=== PATIENT | male | born 1995 | race American Indian/Alaskan Native ===

== ENCOUNTER 2017-10-14 16:15 | Emergency (ER) | payer SELFPAY ==
[2017-10-14] MEDS ORDERED: DELTASONE PO ONE (20:00)
[2017-10-14] MEDS ORDERED: MOTRIN PO ONE (20:00)
--- NOTE | 2017-10-14 20:44 | Emergency Department Report ---
HPI - General Chief Complaint: Upper Respiratory Infection Time Seen by Provider: 10/14/17 19:31 - HPI HPI: Patient is a 22-year-old male who presents to ED with his mother complaining of throat pain 3 days. Patient describes pain as throbbing in nature, 8 out of 10 intensity, nonradiating, localized to his throat. Admits pain with swallowing and eating. Patient also complains of generalized body aches. Patient denies fever/cough/runny nose /nausea/vomiting/abdominal pain/shortness of breath/chest pain/headache. ED Past Medical Hx - Past Medical History Previous Medical History?: No - Surgical History Past Surgical History?: No - Social History Smoking Status: Never Smoker Substance Use Type: Marijuana - Medications Home Medications: Home Medications Medication Instructions Recorded Confirmed Last Taken Type Ibuprofen [Motrin 800 MG tab] 800 mg PO TID #30 tablet 10/14/17 Unknown Rx Nystas/Diphen/Xyl Visc/Mylanta 30 ml MM Q6H PRN #120 ml 10/14/17 Unknown Rx [Magic Mouthwash] guaiFENesin ER [Mucinex ER] 600 mg PO Q12H #20 tablet.er 10/14/17 Unknown Rx ED Review of Systems ROS: Stated complaint: SINUS INFECTION. Other details as noted in HPI Constitutional: denies: chills, fever Eyes: denies: eye pain, eye discharge, vision change ENT: throat pain. denies: ear pain, dental pain, hearing loss, congestion Respiratory: denies: cough, shortness of breath, wheezing Cardiovascular: denies: chest pain, palpitations Endocrine: no symptoms reported Gastrointestinal: denies: abdominal pain, nausea, diarrhea Genitourinary: denies: urgency, dysuria Musculoskeletal: denies: back pain, joint swelling, arthralgia Skin: denies: rash, lesions Neurological: denies: headache, weakness, paresthesias Psychiatric: denies: anxiety, depression Hematological/Lymphatic: denies: easy bleeding, easy bruising Physical Exam - Physical Exam Vital Signs: Vital Signs 10/14/17 16:19 Temperature 97.9 F Pulse Rate 86 Respiratory 16 Rate Blood Pressure 128/80 O2 Sat by Pulse 96 Oximetry Physical Exam: GENERAL: Alert and oriented x3, no apparent distress, Normal Gait, atraumatic. HEAD: Head is normocephalic and a-traumatic. EYES: Extra ocular muscles are intact. Pupils are equal, round, and reactive to light and accommodation. EARS: symetrical, atraumatic, non tender, ear canal clear and moderate cerumen, tympanic membrance non inflamed. gross auditory nml bilaterally. NOSE: Nose symetrical, Nontender,Nares appeared normal. MOUTH:Mouth is well hydrated and without lesions. Tonsils mildly erythematous but not swollen, Uvula midline, Tongue not elevated. Mucous membranes are moist. Posterior pharynx clear, no exudate or lesions. Patent airways. NECK: Supple. Non edematous, No lymphadenopathy or thyromegaly. No C-spine tenderness LUNGS: Symetrical with respiration, No wheezing, no rales or crackles, CTAB. HEART: S1, S2 present, regular rate and rhythm without murmur, no rubs, no gallops. Non tender to palpation SKIN: Warm and dry, No lesions, No ulceration or induration present. ED Course Vital Signs 10/14/17 16:19 Temperature 97.9 F Pulse Rate 86 Respiratory 16 Rate Blood Pressure 128/80 O2 Sat by Pulse 96 Oximetry ED Medical Decision Making - Medical Decision Making 22-year-old male presents with pharyngitis. ED course: Rapid strep tests ordered rapid strep test negative Patient received 1 dose of Tylenol, 60 mg of prednisone. No fever during ED stay. Vital signs stable patient is in no acute or respiratory distress. Discussed with patient follow-up with primary care physician. Patient verbally states he understands and will comply to follow-up. Critical care attestation.: If time is entered above; I have spent that time in minutes in the direct care of this critically ill patient, excluding procedure time. ED Disposition Clinical Impression: Pharyngitis Qualifiers: Pharyngitis/tonsillitis etiology: unspecified etiology Qualified Code(s): J02.9 - Acute pharyngitis, unspecified Disposition: - TO HOME OR SELFCARE Is pt being admited?: No Does the pt Need Aspirin: No Condition: Stable Instructions: Pharyngitis (ED), Upper Respiratory Infection (ED), Viral Syndrome (ED) Additional Instructions: Make sure to follow up with the primary care physician as discussed. Take all your medications as you've been prescribed. If you have any worsening symptoms or develop new symptoms please return to ED immediately. Prescriptions: guaiFENesin ER [Mucinex ER] 600 mg PO Q12H #20 tablet.er Ibuprofen [Motrin 800 MG tab] 800 mg PO TID #30 tablet Nystas/Diphen/Xyl Visc/Mylanta [Magic Mouthwash] 30 ml MM Q6H PRN #120 ml PRN Reason: Sore Throat Referrals: ROLAN RYAN MD [Primary Care Provider] - 3-5 Days RICH RASHID MD [Referring] - 3-5 Days [facility] [Outside] - 3-5 Days [facility] [Outside] - 3-5 Days Forms: Accompanied Note, Work/School Release Form(ED) Time of Disposition: 20:57
[2017-10-14 22:34] VITALS: BP 130/79
== END 2017-10-14 21:30 | disposition home or self-care (01) ==
LOC: ED 16:15
DX: J02.9 Acute pharyngitis, unspecified (principal)
CPT/HCPCS: 87116; 87430; 99282; J7512

== ENCOUNTER 2019-02-01 19:05 | Emergency (ER) | payer SELFPAY ==
[2019-02-01] MEDS ORDERED: BOOSTRIX IM ONE (19:36)
--- NOTE | 2019-02-01 19:36 | Emergency Department Report ---
ED Laceration HPI - HPI Stated Complaint: CODE TRAUMA Time Seen by Provider: 02/01/19 19:10 Occurred When: Today Severity: severe Tetanus Status: Not up to Date Laceration Symptoms: Yes Pain, No Foreign Body Sensation, No Numbness, No Weakness Other History: Patient is a 23-year-old male that just emergency room with complaints of laceration to his right forearm after punching a glass window. Patient complains of pain. Patient states she's lost a lot of blood. Patient states after he saw the blood on the floor he became nauseous and lightheaded. Patient states is nausea and lightheadedness and vomiting have resolved. Patient states the pain is present. Based states the pain is better with rest and worse with movement of the extremity. ED Review of Systems ROS: Stated complaint: CODE TRAUMA Other details as noted in HPI Constitutional: denies: chills, fever Eyes: denies: eye pain, eye discharge, vision change ENT: denies: ear pain, throat pain Respiratory: denies: cough, shortness of breath, wheezing Cardiovascular: denies: chest pain, palpitations Endocrine: no symptoms reported Gastrointestinal: nausea, vomiting. denies: abdominal pain, diarrhea Genitourinary: denies: urgency, dysuria Musculoskeletal: denies: back pain, joint swelling, arthralgia Skin: denies: rash, lesions Neurological: denies: headache, weakness, paresthesias Psychiatric: denies: anxiety, depression Hematological/Lymphatic: denies: easy bleeding, easy bruising ED Past Medical Hx - Past Medical History Previous Medical History?: No - Surgical History Past Surgical History?: No - Family History Family history: no significant - Social History Smoking Status: Never Smoker Substance Use Type: Marijuana - Medications Home Medications: Home Medications Medication Instructions Recorded Confirmed Last Taken Type Ibuprofen [Motrin 800 MG tab] 800 mg PO TID #30 tablet 10/14/17 Unknown Rx Nystas/Diphen/Xyl Visc/Mylanta 30 ml MM Q6H PRN #120 ml 10/14/17 Unknown Rx [Magic Mouthwash] guaiFENesin ER [Mucinex ER] 600 mg PO Q12H #20 tablet.er 10/14/17 Unknown Rx Laceration Physical Exam - Exam General: Vital signs noted. No distress. Alert and acting appropriately. The patient appeared well nourished and normally developed. Vital signs as documented. Head exam is unremarkable. No scleral icterus or corneal arcus noted. Neck is without jugular venous distension, thyromegaly, or carotid bruits. Carotid upstrokes are brisk bilaterally. Lungs are clear to auscultation and percussion. Cardiac exam reveals the PMI to be normally sized and situated. Rhythm is regular. First and second heart sounds normal. No murmurs, rubs or gallops. Abdominal exam reveals normal bowel sounds, no masses, no organomegaly and no aortic enlargement. Laceration Location: Upper Extremity Laceration Exam: Yes Exposed Tendon, Vessel, or Nerve, Yes Tendon Injury (patient is unable to extend his fingers.), No Foreign Body, No Normal Distal CMS (patient's pulse weaker on the right side in comparison to the left. Patient's left hand is cooler than the uninjured side.) ED Course - Reevaluation(s) Reevaluation #1: Patient states pain is better. Patient denies nausea and vomiting. Due to the exam and the patient unable to extend his fingers and cold extremity, local trauma center will be counseled. 02/01/19 20:20 Reevaluation #2: Discussed all results and clinical findings with patient. Patient will be transferred to [place]. patient agrees to plan of care. 02/01/19 20:56 - Consultations Consultation #1: [place] [facility] paged 02/01/19 20:35 [facility] at [place] has accepted the patient to be transferred from ER to ER. 02/01/19 20:55 ED Medical Decision Making - Lab Data Result diagrams: 02/01/19 19:45 02/01/19 19:45 - Medical Decision Making Patient is a 23-year-old male presents to emergency room with complaints of laceration to the right forearm after punching glass. Patient found to have significant tendon damage and vascular compromise. Patient unable to extend fingers during exam. Patient also found to have cooler than left hand temperatures and ambulate Refill. Patient also found to have a difference and pulses between the 2 hands. Patient's labs unremarkable. Patient transferred to [place] [facility] due to vascular compromise findings. Patient transported via EMS to [place]. Patient given tetanus shot and pain medications and fluids. Patient initially found to have nausea vomiting secondary to the site of blood, which resolved on its own. - Differential Diagnosis laceration. Tendon injury. Muscle injury. Vascular compromise. Critical Care Time: Yes Critical care attestation.: If time is entered above; I have spent that time in minutes in the direct care of this critically ill patient, excluding procedure time. Critical Care Time: 45 minutes ED Disposition Clinical Impression: Vascular complication Forearm laceration involving tendon Qualifiers: Encounter type: initial encounter Laterality: right Qualified Code(s): S51.811A - Laceration without foreign body of right forearm, initial encounter Disposition: DC/TX-70 ANOTHER TYPE HLTHCARE Is pt being admited?: No Does the pt Need Aspirin: No Condition: Critical Time of Disposition: 20:55
[2019-02-01] MEDS ORDERED: DILAUDID IV ONE (19:59)
[2019-02-01 20:05] LABS: Hematocrit 42.3 % (35.5-45.6); Hemoglobin 14.5 gm/dl (11.8-15.2); Mean Corpuscular HGB Conc 34 % (32-34); Mean Corpuscular Volume 98 fl (84-94)
[2019-02-01 20:17] LABS: Platelet Count 110 K/mm3 (140-440)
[2019-02-01 20:29] LABS: Alanine Aminotransferase 14 units/L (7-56); Albumin 3.4 g/dL (3.9-5); BUN/Creatinine Ratio 11; Blood Urea Nitrogen 12 mg/dL (9-20); Calcium 8.3 mg/dL (8.4-10.2); Hemolysis Index 51
[2019-02-01] MEDS ORDERED: XYLOCAINE 1% 20 mL ONE (20:39)
[2019-02-01 21:35] VITALS: BP 110/67
== END 2019-02-01 21:59 | disposition other institution (70) ==
LOC: ED 19:05
DX: S51.811A Laceration without foreign body of right forearm, initial encounter (principal); F12.10 Cannabis abuse, uncomplicated; W25.XXXA Contact with sharp glass, initial encounter; Y93.89 Activity, other specified; Y92.89 Other specified places as the place of occurrence of the external cause; Y99.8 Other external cause status
CPT/HCPCS: 36415; 80053; 85027; 90471; 90715; 96374; 99291; J1170